=== PATIENT | male | born 2000 | race Caucasian/White ===

== ENCOUNTER 2021-04-10 21:21 | Emergency (ER) | payer MEDICAID, OTHER ==
[~2021-04-10] VITALS: Ht 175.3 cm; Wt 75.0 kg
[2021-04-10 21:32] VITALS: BP 128/75
[2021-04-10] MEDS ORDERED: proparacaine 0.5% ophthalmic drops 15ml EACHEYE ONE (22:05)
[2021-04-10] MEDS ORDERED: POLOS RIGHTEYE (23:27)
== END 2021-04-10 23:42 | disposition home or self-care (01) ==
LOC: ER 21:22
DX: T15.91XA Foreign body on external eye, part unspecified, right eye, initial encounter (principal); Z88.0 Allergy status to penicillin; X58.XXXA Exposure to other specified factors, initial encounter; Y93.89 Activity, other specified; Y92.89 Other specified places as the place of occurrence of the external cause; Y99.8 Other external cause status
CPT/HCPCS: 99283

== ENCOUNTER 2022-01-14 16:28 | Emergency (ER) | payer MEDICAID, OTHER ==
[~2022-01-14] VITALS: Ht 175.3 cm; Wt 68.0 kg
[2022-01-14 17:12] VITALS: BP 114/63
== END 2022-01-14 17:30 | disposition home or self-care (01) ==
LOC: ER 16:29
DX: L53.8 Other specified erythematous conditions (principal); M25.511 Pain in right shoulder; Z80.0 Family history of malignant neoplasm of digestive organs; X50.0XXA Overexertion from strenuous movement or load, initial encounter; Y93.89 Activity, other specified; Y92.89 Other specified places as the place of occurrence of the external cause; Y99.8 Other external cause status
CPT/HCPCS: 73030; 99283